=== PATIENT | male | born 1955 | race Caucasian/White ===

== ENCOUNTER 2016-12-02 17:56 | Emergency (ER) | payer MEDICAID ==
[~2016-12-02] VITALS: Ht 172.7 cm; Wt 127.3 kg
[2016-12-02] MEDS ORDERED: ALBUTEROL/IPRATROPIUM 2.5MG/0.5MG, 3 ML ONE (18:22)
[2016-12-02] MEDS ORDERED: ALBUTEROL/IPRATROPIUM 2.5MG/0.5MG, 3 ML NPPB ONE (18:30)
[2016-12-02] MEDS ORDERED: SODIUM CHLORIDE FLUSH 10ML SYR IVF ONE (18:30)
[2016-12-02] MEDS ORDERED: SODIUM CHLORIDE 0.9% 1,000ML IVBOLUS ONE (18:30)
[2016-12-02] MEDS ORDERED: KETOROLAC 30 MG/1 ML ONE (18:39)
[2016-12-02] MEDS ORDERED: methylPREDNISolone SOD SUCC 125 MG/2 ML IVPush ONE (19:00)
[2016-12-02 19:03] LABS: BLOOD UREA NITROGEN 18 mg/dL (7-18)
[2016-12-02 19:07] LABS: IS PT STATUS REG ER OR PRE ER? YES
[2016-12-02] MEDS ORDERED: methylPREDNISolone SOD SUCC 125 MG/2 ML ONE (19:26)
[2016-12-02] MEDS ORDERED: MORPHINE SULFATE 4 MG/ML, 1ML ONE (19:57)
[2016-12-02] MEDS ORDERED: morphine SULFATE 10 MG/ML, 1ML IVPush ONE (20:00)
[2016-12-02] MEDS ORDERED: HYDROmorphone 1 MG/ML, 1ML ONE (20:48)
[2016-12-02] MEDS ORDERED: HYDROmorphone 1 MG/ML, 1ML IV ONE (21:00)
[2016-12-02 21:20] VITALS: BP 180/108
[2016-12-05 20:07] LABS: BORDETELLA PERTUSSIS IGG <0.95 index (0.00-0.94); BORDETELLA PERTUSSIS IGM <1.0 index (0.0-0.9)
== END 2016-12-02 21:25 | disposition home or self-care (01) ==
LOC: ED 21:19
DX: J20.9 Acute bronchitis, unspecified (principal); I10 Essential (primary) hypertension; K21.9 Gastro-esophageal reflux disease without esophagitis; Z88.0 Allergy status to penicillin; Z88.6 Allergy status to analgesic agent; F17.210 Nicotine dependence, cigarettes, uncomplicated
CPT/HCPCS: 36415; 71010; 71275; 80048; 82040; 83880; 84145; 84484; 85025; 86615; 93005; 94640; 96374; 96375; 99285; J1170; J2270; J2930; J7030; J7620

== ENCOUNTER 2016-12-07 18:56 | Emergency (ER) | payer MEDICAID ==
[~2016-12-07] VITALS: Ht 172.7 cm; Wt 115.0 kg
[2016-12-07 18:58] VITALS: BP 159/97
[2016-12-07] MEDS ORDERED: ONDANSETRON ODT 4 MG ONE (19:38)
[2016-12-07] MEDS ORDERED: HYDROmorphone 1 MG/ML, 1ML ONE (19:38)
[2016-12-07] MEDS ORDERED: ONDANSETRON ODT 4 MG PO ONE (20:00)
[2016-12-07] MEDS ORDERED: HYDROmorphone 1 MG/ML, 1ML IM ONE (20:00)
[2016-12-07] MEDS ORDERED: OXYcodone/APAP 5/325MG TABLET PO ONE (20:30)
[2016-12-07] MEDS ORDERED: OXYcodone/APAP 5/325MG TABLET ONE (20:31)
== END 2016-12-07 20:55 | disposition home or self-care (01) ==
LOC: ED 20:20
DX: S39.012A Strain of muscle, fascia and tendon of lower back, initial encounter (principal); M51.16 Intervertebral disc disorders with radiculopathy, lumbar region; Z88.0 Allergy status to penicillin; Z88.6 Allergy status to analgesic agent; Z88.8 Allergy status to other drugs, medicaments and biological substances; X58.XXXA Exposure to other specified factors, initial encounter; Y93.89 Activity, other specified; Y99.8 Other external cause status; Y92.89 Other specified places as the place of occurrence of the external cause
CPT/HCPCS: 72110; 96372; 99284; J1170; Q0162; J7512

== ENCOUNTER 2016-12-29 08:17 | Emergency (ER) | payer MEDICAID ==
[~2016-12-29] VITALS: Ht 172.7 cm; Wt 126.6 kg
[2016-12-29] MEDS ORDERED: LIDOCAINE 1%, 20ML ONE (08:33)
[2016-12-29 08:59] VITALS: BP 176/93
[2016-12-29] MEDS ORDERED: LIDOCAINE 1%, 20ML SQ ONE (09:00)
== END 2016-12-29 09:30 | disposition home or self-care (01) ==
LOC: ED 09:29
DX: H61.001 Unspecified perichondritis of right external ear (principal); I10 Essential (primary) hypertension; K21.9 Gastro-esophageal reflux disease without esophagitis
CPT/HCPCS: 96372; 99283; J3490; J2405

== ENCOUNTER 2017-02-06 14:59 | Emergency (ER) | payer MEDICAID ==
[~2017-02-06] VITALS: Ht 172.7 cm; Wt 128.8 kg
[2017-02-06] MEDS ORDERED: SODIUM CHLORIDE FLUSH 10ML SYR IVF ONE ×2 (16:00→17:00)
[2017-02-06 16:42] LABS: HEMATOCRIT 49.2 % (39.2-51.8); HEMOGLOBIN 16.7 g/dL (13.7-18.0); WHITE BLOOD COUNT 9.9 x10^3/uL (3.4-10)
[2017-02-06 16:52] LABS: BLOOD UREA NITROGEN 17 mg/dL (7-18)
[2017-02-06 16:56] LABS: IS PT STATUS REG ER OR PRE ER? YES
[2017-02-06] MEDS ORDERED: ONDANSETRON 2MG/ML, 2ML IVPush ONE (17:00)
[2017-02-06] MEDS ORDERED: HYDROmorphone 1 MG/ML, 1ML IVPush PRN (17:00)
[2017-02-06] MEDS ORDERED: SODIUM CHLORIDE 0.9% 1,000ML IVBOLUS ONE (17:00)
[2017-02-06] MEDS ORDERED: ALBUTEROL SULFATE 2.5MG/0.5ML ONE (17:05)
[2017-02-06] MEDS ORDERED: ALBUTEROL SULFATE 2.5 MG/3 ML NPPB ONE (17:15)
[2017-02-06] MEDS ORDERED: ONDANSETRON 2MG/ML, 2ML ONE (17:46)
[2017-02-06] MEDS ORDERED: HYDROmorphone 1 MG/ML, 1ML ONE (17:46)
[2017-02-06 17:54] VITALS: BP 135/82
[2017-02-06] MEDS ORDERED: OMNIPAQUE 350 MG/ML, 100ML BOTTLE ONE (18:51)
== END 2017-02-06 19:12 | disposition home or self-care (01) ==
LOC: ED 18:10
DX: J44.1 Chronic obstructive pulmonary disease with (acute) exacerbation (principal); K21.9 Gastro-esophageal reflux disease without esophagitis; I10 Essential (primary) hypertension; M54.5 Low back pain; G89.29 Other chronic pain; Z88.6 Allergy status to analgesic agent; Z88.0 Allergy status to penicillin; Z88.8 Allergy status to other drugs, medicaments and biological substances
CPT/HCPCS: 36415; 71010; 74177; 80048; 81003; 82040; 84484; 85025; 93005; 94640; 96361; 96374; 96375; 99285; J1170; J2405; J7030; Q9967; J7613